=== PATIENT | female | born 1960 | race Caucasian/White ===

== ENCOUNTER → 2017-12-06 | Outpatient (CLI) | payer BC ==
[~2017-12-06] MED LIST: CYMBALTA60 MG PO; DAILY VALUE1 EACH PO; ERGOCALCIF50000 UNIT PO; FLORINEF ACETA0.1 MG PO; KLONOPIN0.5 M1 PO; NATURAL CALCIU500 M1 PO; NATURAL CALCIU500 MG PO; NORCO 5/3251 TABLET PO; PEPCID40 MG PO; PLAQUENIL200 MG PO; PRAVACHOL40 MG PO; PREMARIN VAGI42.5 GM VG; RECLAST5 MG/100 M IV; SODIUM CHLORIDE1 G1 PO; TOPROL XL25 MG PO; TRAZODONE HCL100 MG PO; WELLBUTRIN XL150 MG PO; WELLBUTRIN XL300 MG PO; ZOFRAN8 MG PO
== END | disposition home or self-care (01) ==
LOC: NUC 08:14
DX: K31.84 Gastroparesis (principal)
CPT/HCPCS: 78264; A9541